=== PATIENT | female | born 1985 | race Caucasian/White ===

== ENCOUNTER 2022-04-21 09:56 | Emergency (ER) | payer BC, MEDICAID, SELFPAY ==
[2022-04-21 10:10] VITALS: BP 161/73; PULSE 70; RESP 16; TEMP 36.5; O2SAT 100
[2022-04-21 10:24] VITALS: BP 161/73; PULSE 70; RESP 16; TEMP 36.5; O2SAT 100
--- NOTE | 2022-04-21 10:59 | ED.EYEPROB ---
HPI - Eye Problem General Chief complaint: Eye Problems Stated complaint: left eye burning Time Seen by Provider: 04/21/22 10:55 Source: patient, RN notes reviewed and old records reviewed Mode of arrival: ambulatory Limitations: no limitations History of Present Illness HPI Narrative: She is a 36-year-old female who presents to express care with complaints of burning irritation and some drainage from her left eye this morning. Patient had false eye lashes applied at a salon 2 days ago, initially thought her eyes were dry but when she noted drainage from her left eye this morning she took eyelashes off. Patient denies any sharp pain to her eyes, yellowish drainage reported from left eye with some redness to sclera and complaints of itching to left eye. No redness, itching or drainage noted from right eye. MD chief complaint: eye redness Onset (ago): hour(s) (this morning) Severity scale (1-10): 4 Treatments Prior to Arrival: OTC eye drops (lubricating drops) Related Data Home Medications Medication Instructions Recorded Confirmed ascorbate calcium (vitamin C) 500 500 mg PO DAILY 04/21/22 04/21/22 mg tablet cholecalciferol (vitamin D3) 50 50 mcg PO DAILY 04/21/22 04/21/22 mcg (2,000 unit) capsule (Vitamin D3) ferrous sulfate 325 mg (65 mg 325 mg PO BID 04/21/22 04/21/22 iron) tablet fluoxetine 40 mg capsule 40 mg PO DAILY 04/21/22 04/21/22 levothyroxine 75 mcg tablet 75 mcg PO DAILY 04/21/22 04/21/22 losartan 50 mg-hydrochlorothiazide 1 tablet PO DAILY 04/21/22 04/21/22 12.5 mg tablet propranolol 20 mg tablet 20 mg PO Q12H 04/21/22 04/21/22 Allergies Allergy/AdvReac Type Severity Reaction Status Date / Time codeine Allergy Unknown N/V Verified 04/21/22 10:19 hydrocodone Allergy Unknown Nausea and Verified 04/21/22 10:19 Vomiting Penicillins Allergy Unknown Unknown Verified 04/21/22 10:19 Review of Systems Review of Systems: CONSTITUTIONAL: Denies fever, chills, or sweats. EYES: Denies visual changes. Reports redness,, irritation, discharge left eye ENT: Denies rhinorrhea, congestion, sore throat, or otalgia. CARDIOVASCULAR: Denies chest pain, palpitations, or edema. RESPIRATORY: Denies cough or dyspnea. SKIN: Denies rash or itching. NEUROLOGIC: Denies headache All systems reviewed & are unremarkable except as noted in HPI and below PMFSH Past Medical History Medical History (Updated 04/22/22 @ 20:44 by Remedios Francis NP) Fracture of left wrist GERD (gastroesophageal reflux disease) Hypertension Hypothyroid NICKY (obstructive sleep apnea) Tension headache Surgical History Surgical History (Updated 04/22/22 @ 20:41 by Remedios Francis NP) History of cholecystectomy Previous section X3 Social History Social History (Updated 04/22/22 @ 20:42 by Remedios Francis NP) Smoking status: Never smoker Alcohol intake: current Alcohol use details: social Substance use type: does not use Living arrangements: with family Gender identity (if verbalized by the patient): Female Comments At time of signature, agree with nursing past medical, surgical, social and family history. There is no relevant family history pertinent to the presenting complaint Exam Narrative: GENERAL: Well-appearing, well-nourished, and in no acute distress. HEAD: Normocephalic, atraumatic. EYES: PERRLA and EOMI. Upper and lower eyelids unremarkable. No periorbital cellulitis noted. Sclera and conjunctivae injected, drainage from left eye. ENT: Nares clear, no rhinorrhea or epistaxis. Mucous membranes moist. NECK: Supple.no lymphadenopathy CHEST: Clear to auscultation. No respiratory distress.SAO2 100% on room air HEART: Regular rate and rhythm. No murmur heard. Normal peripheral pulses. SKIN: Warm, dry, no rash. NEURO: No focal deficits. Alert and oriented x3. Course Course Emergency Course: Patient is aware of diagnosis, understands and agrees to treatment plan. Anticipatory guidance
== END 2022-04-21 11:15 | disposition home or self-care (01) ==
PROVIDERS: Emergency Provider Registered Nurse; PCP Internal Medicine
DX: H10.9 Unspecified conjunctivitis (principal); K21.9 Gastro-esophageal reflux disease without esophagitis; I10 Essential (primary) hypertension; E03.9 Hypothyroidism, unspecified; G47.33 Obstructive sleep apnea (adult) (pediatric)
CPT/HCPCS: 99203; G0463

== ENCOUNTER 2022-07-24 18:06 | Emergency (ER) | payer BC, MEDICAID, SELFPAY ==
[2022-07-24 18:21] VITALS: BP 146/76; PULSE 86; RESP 20; TEMP 36.6; O2SAT 99
--- NOTE | 2022-07-24 18:27 | ED.SKABFB ---
HPI - Skin/Abscess/Foreign Bdy General Chief complaint: Skin/Abscess/Foreign Body Stated complaint: Rash Time Seen by Provider: 07/24/22 18:30 Source: patient Mode of arrival: ambulatory Limitations: no limitations History of Present Illness HPI narrative: Kiki is a 37-year-old female patient presenting to the clinic today with complaints of a rash to her under arms. She reports that the rash is itching and burning. Related Data Home Medications Medication Instructions Recorded Confirmed ascorbate calcium (vitamin C) 500 500 mg PO DAILY 04/21/22 07/24/22 mg tablet cholecalciferol (vitamin D3) 50 50 mcg PO DAILY 04/21/22 07/24/22 mcg (2,000 unit) capsule (Vitamin D3) ferrous sulfate 325 mg (65 mg 325 mg PO BID 04/21/22 07/24/22 iron) tablet fluoxetine 40 mg capsule 40 mg PO DAILY 04/21/22 07/24/22 levothyroxine 75 mcg tablet 75 mcg PO DAILY 04/21/22 07/24/22 losartan 50 mg-hydrochlorothiazide 1 tablet PO DAILY 04/21/22 07/24/22 12.5 mg tablet propranolol 20 mg tablet 20 mg PO Q12H 04/21/22 07/24/22 Allergies Allergy/AdvReac Type Severity Reaction Status Date / Time codeine Allergy Unknown N/V Verified 07/24/22 18:23 hydrocodone Allergy Unknown Nausea and Verified 07/24/22 18:23 Vomiting Penicillins Allergy Unknown Unknown Verified 07/24/22 18:23 Review of Systems Review of Systems: Pertinent positives per HPI. Patient denies any fever, chills, headache, visual changes, dizziness, cough, runny nose, sore throat, shortness of breath, chest pain, palpitations, nausea, vomiting, diarrhea, constipation, abdominal pain, or any urinary issues. [facility] Past Medical History Medical History Fracture of left wrist GERD (gastroesophageal reflux disease) Hypertension Hypothyroid NICKY (obstructive sleep apnea) Tension headache Surgical History Surgical History History of cholecystectomy Previous section X3 Social History Social History Smoking status: Never smoker Alcohol intake: current Alcohol use details: social Substance use type: does not use Gender identity (if verbalized by the patient): Female Comments At the time of my signature, I reviewed and agree with the nursing past medical, surgical, social, and family history. There is no relevant family history pertinent to the patient complaint. Exam Narrative: General: Well-developed, well nourished, in no apparent distress Head: Normocephalic, atraumatic. Cardio: Regular rate and rhythm, s1 and s2 normal, no murmur appreciated. Resp: Clear to auscultation bilaterally, no rhonchi, rales, wheezing or rubs. Integumentary: [place], warm, and dry, intact without lesion, Red, itchy, peeling, beffy appearing rash underneath the left axilla and very mild rash to the right exam Course Course Emergency Course: Portions of this record may have been created with voice recognition software. Level of Care: Express Care Visit Vital Signs Vital signs: Vital Signs Temperature 36.6 C 07/24/22 18:21 Pulse Rate 86 07/24/22 18:21 Respiratory Rate 20 07/24/22 18:21 Blood Pressure 146/76 H 07/24/22 18:21 Pulse Oximetry 99 07/24/22 18:21 Oxygen Delivery Room Air 07/24/22 18:21 Temperature 36.6 C 07/24/22 18:21 Pulse Rate 86 07/24/22 18:21 Respiratory Rate 20 07/24/22 18:21 Blood Pressure 146/76 H 07/24/22 18:21 Pulse Oximetry 99 07/24/22 18:21 Oxygen Delivery Room Air 07/24/22 18:21 Vital signs reviewed MDM - Skin/Abscess/Foreign Bdy MDM Narrative Medical decision making narrative: at the time of visit patient is resting comfortably on exam table. I suspect the patient has a yeast infection in her axilla. Prescription for nystatin powder was sent to pharmacy and supportive measures were discusse
== END 2022-07-24 18:34 | disposition home or self-care (01) ==
PROVIDERS: Emergency Provider Nurse Practitioner Family; PCP Internal Medicine
DX: B37.2 Candidiasis of skin and nail (principal); K21.9 Gastro-esophageal reflux disease without esophagitis; I10 Essential (primary) hypertension; E03.9 Hypothyroidism, unspecified
CPT/HCPCS: 99213; G0463

== ENCOUNTER 2022-09-29 14:08 | Emergency (ER) | payer BC, MEDICAID, SELFPAY ==
[2022-09-29 14:13] VITALS: BP 144/75; PULSE 84; RESP 20; TEMP 36.8; O2SAT 100
[2022-09-29 14:23] VITALS: BP 144/75; PULSE 84; RESP 20; TEMP 36.8; O2SAT 100
--- NOTE | 2022-09-29 15:01 | ED.SKABFB ---
HPI - Skin/Abscess/Foreign Bdy General Chief complaint: Skin/Abscess/Foreign Body Stated complaint: Skin Sore Time Seen by Provider: 09/29/22 15:00 Source: patient Mode of arrival: ambulatory Limitations: no limitations History of Present Illness HPI narrative: 37-year-old female who presents to [facility] with complaints of redness with area of induration to area of tissue at left axilla which started on . Patient reports that she has had previous history of MRSA and is concerned she has abscess starting at this area. Patient has area of redness 5cm X 6cm with firmness of tissue area of 6cm X9cm with no pustules, open skin areas or fluctuant of tissue noted at this time. Patient reports that she has been taking warm showers. Patient reports tenderness to skin tissue in this area, has not had any fevers,chills or sweats. MD complaint: abscess/boil Onset (ago): day(s) (4 days) Severity scale (1-10): 7 Treatments prior to arrival: other (warm showers) Related Data Home Medications Medication Instructions Recorded Confirmed ascorbate calcium (vitamin C) 500 500 mg PO DAILY 04/21/22 09/29/22 mg tablet cholecalciferol (vitamin D3) 50 50 mcg PO DAILY 04/21/22 09/29/22 mcg (2,000 unit) capsule (Vitamin D3) ferrous sulfate 325 mg (65 mg 325 mg PO BID 04/21/22 09/29/22 iron) tablet fluoxetine 40 mg capsule 40 mg PO DAILY 04/21/22 09/29/22 levothyroxine 75 mcg tablet 75 mcg PO DAILY 04/21/22 09/29/22 losartan 50 mg-hydrochlorothiazide 1 tablet PO DAILY 04/21/22 09/29/22 12.5 mg tablet propranolol 20 mg tablet 20 mg PO Q12H 04/21/22 09/29/22 Allergies Allergy/AdvReac Type Severity Reaction Status Date / Time codeine Allergy Unknown N/V Verified 09/29/22 14:21 hydrocodone Allergy Unknown Nausea and Verified 09/29/22 14:21 Vomiting Penicillins Allergy Unknown Unknown Verified 09/29/22 14:21 Review of Systems Review of Systems: CONSTITUTIONAL: Denies fever, chills, or sweats. CARDIOVASCULAR: Denies chest pain, palpitations, or edema. RESPIRATORY: Denies cough or dyspnea. GASTROINTESTINAL: Denies abdominal pain, nausea, vomiting SKIN: Reports redness and swelling. Denies purulent drainage, vesicles, bullae, numbness, pain beyond proportion, firm induration of tissue at left axilla MUSCULOSKELETAL: Denies myalgia. NEUROLOGIC: Denies headache, numbness All systems reviewed & are unremarkable except as noted in HPI and below PMFSH Past Medical History Medical History (Updated 10/01/22 @ 15:19 by Remedios Francis NP) Fracture of left wrist GERD (gastroesophageal reflux disease) Hypertension Hypothyroid MRSA (methicillin resistant Staphylococcus aureus) NICKY (obstructive sleep apnea) Tension headache Surgical History Surgical History History of cholecystectomy Previous section X3 Social History Social History Smoking status: Never smoker Alcohol intake: current Alcohol use details: social Substance use type: does not use Living arrangements: with family Gender identity (if verbalized by the patient): Female Comments At time of signature, agree with nursing past medical, surgical, social and family history. There is no relevant family history pertinent to the presenting complaint Exam Narrative: GENERAL: Well-appearing, well-nourished, and in no acute distress. HEAD: Normocephalic, atraumatic. EYES: PERRLA and EOMI. ENT: Nares clear, no rhinorrhea or epistaxis. Mucous membranes moist.TM's normal with good light reflex, throat pink with no swelling. NECK: Supple.no lymphadenopathy CHEST: Clear to auscultation. No respiratory distress. HEART: Regular rate and rhythm. No murmur heard. Normal peripheral pulses. ABDOMEN: Soft, nontender, nondistended, normal active bowel sounds. EXTREMITIES: Normal range of motion. No edema. SKIN: Warm, dry. Erythema, i
== END 2022-09-29 15:20 | disposition home or self-care (01) ==
PROVIDERS: Emergency Provider Registered Nurse; PCP Internal Medicine
DX: L03.112 Cellulitis of left axilla (principal); I10 Essential (primary) hypertension; E03.9 Hypothyroidism, unspecified
CPT/HCPCS: 99213; G0463